=== PATIENT | male | born 1970 | race Caucasian/White ===

== ENCOUNTER → 2020-08-28 | Outpatient (CLI) | payer MEDICARE, MEDICAID | LOC: COL.LAB 15:33 | DX: E03.4 Atrophy of thyroid (acquired) (principal) ==

== ENCOUNTER → 2020-10-12 | Outpatient (REF) | payer MEDICARE, MEDICAID | LOC: ZCOL.LAB 19:05 | DX: J31.0 Chronic rhinitis (principal) ==

== ENCOUNTER 2022-11-20 07:55 | Inpatient (IN) | payer MEDICARE, MEDICAID ==
[~2022-11-20] VITALS: Ht 180.3 cm; Wt 73.4 kg
[2022-11-20] VITALS (16 sets, daily range): BP systolic 92–115; BP diastolic 38–64; PULSE 97–120; TEMP 98.7–100.2
[~2022-11-20 07:55] MED LIST: PROTONIX 40MG T40 MG PO
[2022-11-20 08:12] LABS: BASO % 0.2 % (0.0-2.0); EOS # 0.1 K/mm3 (0.0-0.7); EOS % 0.3 % (0.0-4.0); GRAN # 13.4 K/mm3 (1.4-6.5); LYMPH # 2.4 K/mm3 (1.2-3.4); LYMPH % 13.5 % (20.0-51.0); MEAN CELL VOLUME 97 fl (80.0-100.0); MEAN CORPUSCULAR HEMOGLOBIN 30 pg (27-31); MEAN CORPUSCULAR HGB CONC 31 g/dl (33.0-37.0); MEAN PLATELET VOLUME 11.1 fl (7.4-10.4); MONO # 1.4 K/mm3 (0.1-0.6); MONO % 8.2 % (1.7-9.3); PLATELET COUNT 222 K/mm3 (130-400); RED BLOOD COUNT 1.38 M/mm3 (4.20-5.60); REDCELL DISTRIBUTION WIDTH-CV 14.7 % (11.5-14.5)
[2022-11-20 08:14] LABS: HEMATOCRIT 13.4 % (42.0-52.0); HEMOGLOBIN 4.2 g/dl (13.5-18.0); INR 1.3 (0.8-3.0); PROTHROMBIN TIME 14.8 SECONDS (9.7-12.8)
[2022-11-20 08:16] LABS: PARTIAL THROMBOPLASTIN TIME 27.5 SECONDS (26.0-37.0)
[2022-11-20 08:50] LABS: ALBUMIN 2.5 gm/dL (3.5-5.0); BILIRUBIN,TOTAL 0.2 mg/dL (0.2-1.2); CALCIUM 7.9 mg/dL (8.4-10.2); CREATININE, serum 0.93 mg/dL (0.72-1.25); MAGNESIUM 1.8 mg/dL (1.6-2.6); PHOSPHOROUS 2.2 mg/dL (2.3-4.7); TOTAL PROTEIN 4.7 gm/dL (6.2-8.1)
[2022-11-20 09:55] LABS: COLLECTION METHOD CLEAN CATCH
[2022-11-20 10:03] LABS: PH 5.5 (5.0-8.5); SQUAMOUS EPITHELIAL None Seen /hpf (0-10); URINE APPEARANCE Clear (CLEAR/HAZY); URINE BACTERIA None Seen /hpf (NONE SEEN); URINE BLOOD Negative (NEGATIVE); URINE COLOR Yellow (YELLOW); URINE GLUCOSE Negative (NEGATIVE); URINE KETONE Negative (NEGATIVE); URINE NITRATE Negative (NEGATIVE); URINE PROTEIN(semi-quant) Negative (NEGATIVE); URINE RBC 0-2 /hpf (0-2); URINE UROBILINOGEN 0.2 E.U/dL (0.2-1.0); URINE WBC 0-2 /hpf (0-2)
[2022-11-20 13:03] LABS: HEMATOCRIT 20.9 % (42.0-52.0)
[2022-11-20 13:07] LABS: HEMOGLOBIN 7.1 g/dl (13.5-18.0)
[2022-11-20] MEDS ORDERED: SYNTHROID0.1 MG/TAB PO (14:24)
[2022-11-20] MEDS ORDERED: ABILIFY5 MG PO (14:24)
[2022-11-20] MEDS ORDERED: AMBIEN CR6.25 MG PO (14:25)
[2022-11-20] MEDS ORDERED: XYOSTED100 MG/0.5 SQ (14:28)
[2022-11-20] MEDS ORDERED: KLONOPIN 0.5MG0.5 MG PO (14:30)
[2022-11-20] MEDS ORDERED: [UNRECOGNIZED DRUG - OTHER] PO (16:39)
[2022-11-20 17:12] LABS: HEMATOCRIT 19.8 % (42.0-52.0)
[2022-11-20 17:13] LABS: HEMOGLOBIN 6.7 g/dl (13.5-18.0)
--- NOTE | 2022-11-20 19:56 | NUR ---
Alert/oriented x3, VSS, Tele on- tachy 112/min, Unit of blood started at this time per protocol. Pale. Denies pain/SOB.Understands to call for assist to bathroom. Stayed with pt for first 15 minutes of blood transfusion-
--- NOTE | 2022-11-20 22:10 | NUR ---
unit of blood completed- no adverse reactions
--- NOTE | 2022-11-20 22:25 | NUR ---
Second unit of blood started at this time- policy followed
[2022-11-21] VITALS (23 sets, daily range): BP systolic 93–130; BP diastolic 46–70; PULSE 87–112; TEMP 98.2–99.4
--- NOTE | 2022-11-21 00:25 | NUR ---
Second unit of blood given- no adverse reactions.
[2022-11-21 01:08] LABS: HEMATOCRIT 21.1 % (42.0-52.0); HEMOGLOBIN 6.8 g/dl (13.5-18.0)
--- NOTE | 2022-11-21 02:15 | NUR ---
HGB 6.8- Trupti notified- did order another unit of blood-- so Third unit of blood {this shift, 5th since admission} started at this time. Nurse in room for first 15 minutes per protocol.
--- NOTE | 2022-11-21 05:02 | NUR ---
Blood completed- VSS, tele has been 95-100 /min, Up to bathroom with standby-- has had black stools x2 this shift. IV fluis of Ns at 100cc/hr. NPO for EGD.
[2022-11-21 06:39] LABS: BASO # 0.1 K/mm3 (0.0-0.2); BASO % 0.6 % (0.0-2.0); EOS # 0.1 K/mm3 (0.0-0.7); EOS % 0.6 % (0.0-4.0); GRAN # 7.1 K/mm3 (1.4-6.5); GRAN % 69.9 % (42.2-75.2); LYMPH # 1.8 K/mm3 (1.2-3.4); LYMPH % 17.6 % (20.0-51.0); MEAN CORPUSCULAR HGB CONC 33 g/dl (33.0-37.0); MEAN PLATELET VOLUME 10.9 fl (7.4-10.4); MONO % 9.5 % (1.7-9.3); PLATELET COUNT 127 K/mm3 (130-400); RED BLOOD COUNT 2.32 M/mm3 (4.20-5.60); REDCELL DISTRIBUTION WIDTH-CV 15.7 % (11.5-14.5)
[2022-11-21 06:45] LABS: HEMATOCRIT 20.8 % (42.0-52.0); HEMOGLOBIN 6.8 g/dl (13.5-18.0); MEAN CELL VOLUME 90 fl (80.0-100.0); MEAN CORPUSCULAR HEMOGLOBIN 29 pg (27-31)
[2022-11-21 06:48] LABS: CALCIUM 7.3 mg/dL (8.4-10.2); CREATININE, serum 0.76 mg/dL (0.72-1.25); MAGNESIUM 1.9 mg/dL (1.6-2.6); PHOSPHOROUS 1.8 mg/dL (2.3-4.7); POTASSIUM 4.2 mmol/L (3.5-4.5)
--- NOTE | 2022-11-21 07:00 | NUR ---
Notified ÁNGEL Adam of low Hgb
--- NOTE | 2022-11-21 07:41 | NUR ---
Pt doing okay this morning. He states he has some abd cramping at times, none right now. Pt reports that he is not dizzy or lightheaded when he gets up. pt aware that he is having a EGD this morning, consent is signed. No needs at this time, will continue to monitor
[2022-11-21 07:48] LABS: ANISOCYTOSIS 1+; LYMPHOCYTE 17 % (20.0-51.0); MYELOCYTE 1 % (0-0); NEUTROPHILS 78 % (42.0-75.2); NUCLEATED RED BLOOD CELL 1 (0-6); PLATELET ESTIMATE DECREASED (NORMAL)
[2022-11-21 07:52] LABS: POLYCHROMASIA 1+
--- NOTE | 2022-11-21 07:55 | NUR ---
Pt down for EGD
--- NOTE | 2022-11-21 08:58 | NUR ---
Pt back from EGD recently. Pt is awake, alert and oriented, no pain complaints. Pt has anxiety about falling out of bed to the point he wants all 4 side rails up and then pillows between matress and side rails. Pt aware that he is to not have anything to eat or drink at this time.
--- NOTE | 2022-11-21 09:42 | NUR ---
Initial visit; Patient thanked Commercial Loan Assistant for stopping and would like college specialist to return when he gets settled in his room.
[2022-11-21 10:24] LABS: HEMATOCRIT 20.9 % (42.0-52.0); HEMOGLOBIN 7.1 g/dl (13.5-18.0)
--- NOTE | 2022-11-21 10:55 | NUR ---
Pt doing okay. He is getting up independently in the room, no complaints of being lightheaded or dizzy. VSS. Pt refusing to shower and does not want me changing the bed linens. Gave him bath wipes and hair cap
--- NOTE | 2022-11-21 11:23 | NUR ---
RENETTA met with the patient to discuss discharge plan. The patient lives in [place] with his , Shraddha (ph#[phone]). He reports independence with ADLs and does not have any DME. The patient's PCP is Dr. Edwin Charles and he receives his medications from [facility]. The patient does not have a DPOA-HC, but he was interested in obtaining a DPOA-HC and Living Will form. RENETTA provided. The patient plans to return home with his upon discharge. No additional needs at this time. *Discharge plan: home with *
--- NOTE | 2022-11-21 12:00 | NUR ---
Reviewed with pt in am that he would be having lab draws done every 4 hours to check his blood level. Informed him that 1300 was the next draw. Pt rang light at this time and stated that he was ready to see what his level was. Informed him that the order was entered for 1pm. He stated, but I want to know now so if I need blood, I can get it now at not at night. Stated that unfortunately it does not work that way. Pt stated he understood, but was not happy with waiting.
[2022-11-21 13:44] LABS: HEMATOCRIT 20.9 % (42.0-52.0)
--- NOTE | 2022-11-21 16:03 | NUR ---
Pt asked if he could just go ahead and get blood now so that he would not have to get any at night as he likes to sleep at night. Again educated on him getting his labs drawn and that blood would get ordered based off the results. Again educated that right now his hemoglobin was stable and has not dropped today. Pt again didn't like having to wait. Pt has been getting up in his room independently and is steady on his feet. No complaints of feeling dizzy
[2022-11-21 17:07] LABS: HEMATOCRIT 23.1 % (42.0-52.0); HEMOGLOBIN 7.6 g/dl (13.5-18.0)
[2022-11-21] MEDS ORDERED: TESSALON P100 MG/CAP PO (20:46)
[2022-11-21] MEDS ORDERED: PROMETHAZINE12.5 M5 PO (20:48)
--- NOTE | 2022-11-21 21:00 | NUR ---
LAB INTO DRAW H&H. PT HAS INT TO LEFT AC AND IVF TO RAC. IS ALERT AND ORIENTED X4. HAS BEDRAILS UP X4 PER HIS REQUEST. INDEPENDENT IN ROOM. WEARS SHOES IN BED. ORIENTED X4. REPORTS DARK STOOLS TODAY. IS PALE.
[2022-11-21 21:09] LABS: HEMATOCRIT 20.4 % (42.0-52.0); HEMOGLOBIN 6.5 g/dl (13.5-18.0)
--- NOTE | 2022-11-21 21:11 | NUR ---
REPORTED HGB=6.5 TO EDWIN NEAL, WILL GET 1 UNIT PRBC.
--- NOTE | 2022-11-21 22:00 | NUR ---
MADDI KERNS GIVEN FOR COUGH, PT REPORTS RUNNY NOSE.
--- NOTE | 2022-11-21 22:18 | NUR ---
FIRST UNIT OF BLOOD INFUSING TO [facility] SITE WITHOUT PROBLEM.
[2022-11-22] VITALS (17 sets, daily range): BP systolic 95–140; BP diastolic 49–75; PULSE 85–107; TEMP 98.2–99.2
--- NOTE | 2022-11-22 00:45 | NUR ---
BLOOD INFUSED. ORDER FOR H&H IN 1 HR.
[2022-11-22 01:54] LABS: HEMATOCRIT 21.6 % (42.0-52.0); HEMOGLOBIN 7.1 g/dl (13.5-18.0)
--- NOTE | 2022-11-22 01:55 | NUR ---
HGB=7.1, REPORTED TO EDWIN NEAL, NO NEW ORDERS.
[2022-11-22] MEDS ORDERED: NP THYROID30 MG PO (06:05)
--- NOTE | 2022-11-22 06:24 | NUR ---
PT HAS EMESIS, LINENS CHANGED.
[2022-11-22 06:44] LABS: BASO # 0.1 K/mm3 (0.0-0.2); BASO % 0.8 % (0.0-2.0); EOS # 0.1 K/mm3 (0.0-0.7); EOS % 1.4 % (0.0-4.0); GRAN # 6.1 K/mm3 (1.4-6.5); GRAN % 66.6 % (42.2-75.2); LYMPH # 1.9 K/mm3 (1.2-3.4); LYMPH % 21.3 % (20.0-51.0); MEAN CELL VOLUME 90 fl (80.0-100.0); MEAN CORPUSCULAR HGB CONC 33 g/dl (33.0-37.0); MEAN PLATELET VOLUME 11.5 fl (7.4-10.4); MONO # 0.8 K/mm3 (0.1-0.6); MONO % 8.6 % (1.7-9.3); PLATELET COUNT 113 K/mm3 (130-400); RED BLOOD COUNT 2.39 M/mm3 (4.20-5.60); REDCELL DISTRIBUTION WIDTH-CV 18.4 % (11.5-14.5)
[2022-11-22 06:45] LABS: HEMATOCRIT 21.4 % (42.0-52.0); MEAN CORPUSCULAR HEMOGLOBIN 29 pg (27-31)
[2022-11-22 06:49] LABS: CALCIUM 7.4 mg/dL (8.4-10.2); CREATININE, serum 0.75 mg/dL (0.72-1.25); POTASSIUM 3.6 mmol/L (3.5-4.5)
--- NOTE | 2022-11-22 08:15 | NUR ---
Pt. laying in bed. Pt. is A&OX3, assessment complete. IV to rt. ac patent, IV fluids infusing per orders. INT to lt. ac patent. Pt. denies pain or other needs, call light within reach.
[2022-11-22 09:27] LABS: HEMATOCRIT 16.2 % (42.0-52.0)
[2022-11-22 09:28] LABS: HEMOGLOBIN 5.2 g/dl (13.5-18.0)
--- NOTE | 2022-11-22 09:36 | NUR ---
HGB at 5.2. Dr. Quach notified. Order to transfuse unit on hold.
--- NOTE | 2022-11-22 10:16 | NUR ---
Unit of PRBC started at this time. Reviewed the s/s of transfusion reaction with the pt. Pt. voices understanding. Transfusion to lt. ac. Pt. denies needs. Will remain at bedside for 15 minutes
--- NOTE | 2022-11-22 10:35 | NUR ---
Pt. tolerating transfusion. Vitals remain stable. Pt. denies further needs. Rate increased.
--- NOTE | 2022-11-22 10:50 | NUR ---
Follow-up visit; Patient thanked Cotton Header for returning and requests that she pray for healing for him. Brady states that he is suffering and asks that Cotton Header specifically asks that God end the suffering, that he believes in miracles and asks that Cotton Header pray for healing.
--- NOTE | 2022-11-22 13:45 | NUR ---
Transfusion complete. Vitals stable. Pt. denies needs.
--- NOTE | 2022-11-22 14:05 | NUR ---
Next unit of PRBC started at this time. Reviewed with pt. s/s of transfusion reaction. Pt. voices understanding. Vitals remain stable. Will remain at bedside for next 15 minutes.
[2022-11-22 18:24] LABS: HEMATOCRIT 23.8 % (42.0-52.0); HEMOGLOBIN 7.9 g/dl (13.5-18.0)
--- NOTE | 2022-11-22 18:45 | NUR ---
Plan for pt. to transfer to [facility]. Report called to Receiving RN. EMS to arrived around 1900.
--- NOTE | 2022-11-22 19:01 | NUR ---
RECEIVED CHANGE OF SHIFT REPORT FROM DAY SHIFT RN. PATIENT RESTING IN BED, CPAP ON, PATIENT WANTING TO KEEP CPAP ON UNTIL EMS ARRIVE TO TAKE PATIENT TO [facility].
--- NOTE | 2022-11-22 19:07 | NUR ---
PATIENT REPORTS SOME ABD PAIN, REPORTED HE THOUGHT HE WAS STARTING TO HAVE A BUTT SORE, OBSERVED COCCYX CLEAR, NO REDNESS OR OPEN SKIN AREAS AT THIS TIME. IV FLUIDS INFUSING WITH NO PROBLEMS TO RAC IV SITE. LAC INT SITE INTACT.
--- NOTE | 2022-11-22 19:24 | NUR ---
PATIENT DISMISSED FOR TRANSFER TO VIA EMS, IV SITES INT IN PLACE AND PATENT. PATIENT CONTINUES TO PASS BLOOD STOOLS, NO EMESIS OR N/V AT THIS TIME. TRANSFER FORMS GIVEN TO EMS CHILD ATTENDANT.
== END 2022-11-22 19:35 | disposition short-term general hospital (02) | DRG 377 ==
LOC: COL.ER 07:55 → SURG 10:22
PROVIDERS: Emergency Medicine; Internal Medicine; Internal Medicine Gastroenterology; ADMIT Internal Medicine
PROC: 0DB68ZX Excision of Stomach, Via Natural or Artificial Opening Endoscopic, Diagnostic (ICD-10-PCS; principal; 2022-11-21 08:00)
DX: K26.4 Chronic or unspecified duodenal ulcer with hemorrhage (principal); J96.01 Acute respiratory failure with hypoxia; D62 Acute posthemorrhagic anemia; I95.9 Hypotension, unspecified; F41.0 Panic disorder [episodic paroxysmal anxiety]; E03.9 Hypothyroidism, unspecified; G47.00 Insomnia, unspecified; K21.9 Gastro-esophageal reflux disease without esophagitis; F41.9 Anxiety disorder, unspecified; F32.A Depression, unspecified; Z20.822 Contact with and (suspected) exposure to COVID-19; J44.9 Chronic obstructive pulmonary disease, unspecified; G47.33 Obstructive sleep apnea (adult) (pediatric); M62.81 Muscle weakness (generalized); T39.315A Adverse effect of propionic acid derivatives, initial encounter; T39.395A Adverse effect of other nonsteroidal anti-inflammatory drugs [NSAID], initial encounter; K25.9 Gastric ulcer, unspecified as acute or chronic, without hemorrhage or perforation; Z23 Encounter for immunization
CPT/HCPCS: C9113; J0610; J2704; J3480; J7030; P9016; Q9967

== ENCOUNTER → 2024-05-15 | Outpatient (CLI) | payer MEDICARE, MEDICAID ==
[~2024-05-15] MED LIST changes: +ABILIFY5 MG PO; +AMBIEN CR6.25 MG PO; +COMPLETE MULTI1 TAB PO; +KLONOPIN 0.5MG0.5 MG PO; +NP THYROID30 MG PO; +PROMETHAZINE12.5 M5 PO; +SYNTHROID0.1 MG/TAB PO; +TESSALON P100 MG/CAP PO; +VITAMINC1000TA PO; +XYOSTED100 MG/0.5 SQ; +[UNRECOGNIZED DRUG - OTHER] PO
== END ==
LOC: COL.LAB 16:05
DX: E03.4 Atrophy of thyroid (acquired) (principal)